=== PATIENT | female | born 1985 | race Asian ===

== ENCOUNTER 2023-04-16 00:46 | Emergency (ER) | payer OTHER ==
[~2023-04-16] VITALS: Ht 165.1 cm; Wt 63.0 kg
[2023-04-16 00:51] VITALS: O2SAT 97
[2023-04-16] MEDS ORDERED: SODIUM CHLORIDE 0.9% 1,000 ML IV ONE (01:15)
[2023-04-16] MEDS ORDERED: ONDANSETRON HCL 4MG/2ML INJ IV ONE (01:45)
[2023-04-16 06:15] VITALS: BP 124/72; PULSE 69; RESP 15; TEMP 98.3
== END 2023-04-16 06:18 | disposition home or self-care (01) ==
LOC: ER 01:33
DX: R41.82 Altered mental status, unspecified (principal); T51.0X1A Toxic effect of ethanol, accidental (unintentional), initial encounter; X58.XXXA Exposure to other specified factors, initial encounter
CPT/HCPCS: 96361; 96374; 99283; J2405; J7030; Z7610 ×2